=== PATIENT | female | born 1970 | race Asian ===

== ENCOUNTER 2016-12-02 05:02 | Day surgery (SDC) | payer OTHER ==
[2016-11-27 14:41] VITALS: BMI 29.7
[2016-12-02] MEDS ORDERED: PROPOFOL 20 ML ONE ×2 (13:26)
[2016-12-02] MEDS ORDERED: MIDAZOLAM HCL 2 MG/2 ML SINGLE DOSE VIAL ONE (13:26)
[2016-12-02] MEDS ORDERED: DEXAMETHASONE SOD PHOSPHATE 4 MG/1 ML VIAL ONE (13:59)
[2016-12-02] MEDS ORDERED: ONDANSETRON 4 MG/2 ML VIAL IVPUSH PRN (14:43)
[2016-12-02] MEDS ORDERED: LACTATED RINGERS SOLUTION 1,000 ML IV SCH (14:45)
[2016-12-02] MEDS ORDERED: ACETAMINOPHEN 325 MG TABLET (FP) PO PRN (15:26)
[2016-12-02] MEDS ORDERED: IBUPROFEN 400 MG TABLET (FP) PO PRN (15:26)
--- NOTE | 2016-12-02 15:29 | OP ---
Operative Note - Note: Operative Date: 12/02/16 Pre-Operative Diagnosis: submucosal myoma Operation: Hysteroscoic myomectomy. Suction DC Findings: Anterior submucosal myoma Post-Operative Diagnosis: Same as Pre-op Surgeon: Nicki Bush Anesthesia: General Estimated Blood Loss (mls): 30
--- NOTE | 2016-12-02 15:30 | HP ---
History & Physical Update - History History: No Change - Physical Physical: No Change - Assessment Assessment: No Change - Plan Plan: No Change
[2016-12-02 16:54] VITALS: TEMP 98
[2016-12-02 18:51] VITALS: BP 130/76; PULSE 67
--- NOTE | 2016-12-04 13:55 | PATH ---
Surgical Pathology Report Patient Name: BISMARK PADRON [facility]. Rec. #: [id number] /Age/Gender: 1970 (Age: 46) / F Account: [id number] Location: [facility] SURGICAL Taken: 12/02/2016 Received: 12/03/2016 Reported: 12/04/2016 Physicians: Nicki Bush M.D. Specimen(s) Received A: SUBMUCOSAL MYOMA B: ENDOMETRIAL CURETTINGS Clinical History Endometrial polyps Final Diagnosis A. SUBMUCOSAL MYOMA, HYSTEROSCOPIC MYOMECTOMY: FRAGMENTS OF BENIGN SMOOTH MUSCLE WITH INTERVENING WEAKLY PROLIFERATIVE ENDOMETRIUM AND BACKGROUND POLYPOID FRAGMENTS OF DISORDERED PROLIFERATIVE ENDOMETRIUM WITH FOCAL STROMAL BREAKDOWN CHANGE. FRAGMENTS OF BENIGN ENDOCERVICAL TISSUE. B. ENDOMETRIUM, CURETTAGE: FRAGMENTS OF BENIGN SMOOTH MUSCLE. FRAGMENTS OF PROLIFERATIVE ENDOMETRIUM. Electronically Signed Miguelito Gutierrez M.D. Gross Description A. Received in formalin labeled "submucosal myoma" is a 1 g, 3.0 x 2.4 x 0.3 cm aggregate of thomas, irregular, firm to rubbery portions of tissue, consistent with a morcellated fibroid. The specimen is submitted in toto in 2 cassettes. B. Received in formalin labeled "endometrial curetting" is a 1.5 x 1.0 x 0.3 cm aggregate of thomas soft tissue fragments. The formalin is filtered and the specimen is entirely submitted in one cassette. 12/03/201612/03/2016
--- NOTE | 2016-12-17 14:13 | OP ---
DATE OF OPERATION: 12/02/2016 PREOPERATIVE DIAGNOSIS: Endometrial polyps. POSTOPERATIVE DIAGNOSIS: Endometrial polyps. An anterior submucosal myoma noted. OPERATION: Hysteroscopic myomectomy, and suction dilatation and curettage. SURGEON: Nicki Bush MD ANESTHESIA: General. DESCRIPTION OF PROCEDURE: The patient was taken to the operating room, placed in the dorsal lithotomy position, prepped and draped in the usual sterile fashion. The cervix was then dilated to accommodate the operative hysteroscope. The hysteroscope was then inserted and visualization revealed an anterior myoma. Cautery and cutting were then used to remove the anterior myoma. The myoma particles were submitted to Pathology. Suction D&C was then performed. Hemostasis was achieved. Estimated blood loss was about 30 mL. The patient tolerated the procedure well and was taken to the recovery room in stable condition. NICKI BUSH M.D. MADELIN/[id number]
== END 2016-12-02 18:51 | disposition home or self-care (01) ==
LOC: JASU-SURG 05:02
PROVIDERS: ATTEND Obstetrics & Gynecology
PROC: 0UDB8ZX Extraction of Endometrium, Via Natural or Artificial Opening Endoscopic, Diagnostic (ICD-10-PCS; principal; 2016-12-02 13:00)
PROC: 0UB98ZZ Excision of Uterus, Via Natural or Artificial Opening Endoscopic (ICD-10-PCS; 2016-12-02 13:00)
DX: D25.0 Submucous leiomyoma of uterus (principal)
CPT/HCPCS: 84703; 88305-TC; 94760